=== PATIENT | female | born 1965 | race American Indian/Alaskan Native ===

== ENCOUNTER 2019-12-18 09:09 | Outpatient (CLI) | payer OTHER ==
--- NOTE | 2019-12-18 10:10 | XRay Report ---
RIGHT KNEE 4 VIEW(S) INDICATION / CLINICAL INFORMATION: LOWER BACK PAIN, SCIATICA PAIN AND KNEE PAIN COMPARISON: None available. FINDINGS: BONES / JOINT(S): No acute fracture or subluxation. Mild loss of medial tibiofemoral joint space. SOFT TISSUES: Small suprapatellar joint effusion ADDITIONAL FINDINGS: None. Signer Name: Rodney Wallace MD Signed: 12/18/2019 10:05 AM Workstation Name: [id number]
--- NOTE | 2019-12-18 10:10 | XRay Report ---
. LEFT SHOULDER 3 VIEW(S) INDICATION / CLINICAL INFORMATION: LOWER BACK PAIN, SCIATICA PAIN AND SHOULDER PAIN COMPARISON: None available. FINDINGS: BONES / JOINT(S): No acute fracture or subluxation. No significant arthritis. SOFT TISSUES: No significant abnormality. ADDITIONAL FINDINGS: None. Signer Name: Rodney Wallace MD Signed: 12/18/2019 10:06 AM Workstation Name: [id number]
== END 2019-12-18 09:10 | disposition home or self-care (01) ==
LOC: XRAY 09:09
PROVIDERS: ATTEND Internal Medicine
DX: M25.461 Effusion, right knee (principal); M25.462 Effusion, left knee; M25.512 Pain in left shoulder; M54.30 Sciatica, unspecified side